=== PATIENT | female | born 1990 | race Caucasian/White ===

== ENCOUNTER 2021-02-20 16:35 | Emergency (ER) | payer OTHER ==
[~2021-02-20 16:35] MED LIST: COLACE 100MG C100 MG PO; FLEXERIL 10 MG10 MG PO; IBUPROFEN800 MG PO; NORCO 5-325 TA1 EACH PO; OMNICEF 300 MG300 MG PO; ZOFRAN ODT 4 MG4 MG PO
[2021-02-20 18:21] LABS: HEMOGLOBIN 14.4 gm/dl (12.3-15.3); RED BLOOD COUNT 4.8 M/UL (4.00-5.10); WHITE BLOOD COUNT 8.9 K/UL (4.5-11.0)
[2021-02-20 18:46] LABS: BUN/CREATININE RATIO 10 (0-10)
[2021-02-20] MEDS ORDERED: CEFDINIR300 MG PO (22:27)
== END 2021-02-20 22:46 | disposition home or self-care (01) ==
LOC: ER1 16:35
PROVIDERS: Physician Assistant Medical
DX: N12 Tubulo-interstitial nephritis, not specified as acute or chronic (principal); F17.210 Nicotine dependence, cigarettes, uncomplicated; Z20.822 Contact with and (suspected) exposure to COVID-19
CPT/HCPCS: 71045; 80053; 81001; 84703; 85025; 85379; 85610; 85730; 86140; 87077; 87086; 87186; 93005; 96374; 96375; 99284; J0696; J1885; J7030; Q9967; U0002

== ENCOUNTER → 2021-05-12 | Outpatient (CLI) | payer OTHER ==
[~2021-05-12] MED LIST changes: +CEFDINIR300 MG PO; +HYDROCODON-ACE1 EAC2 PO; +MELATONIN10 M2 PO; +NAPROSYN500 MG PO; +ZOFRAN 4 MG TAB4 MG PO; +[UNRECOGNIZED DRUG - OTHER] PO
[2021-05-12 13:58] LABS: HEMOGLOBIN 13.7 gm/dl (12.3-15.3); RED BLOOD COUNT 4.6 M/UL (4.00-5.10); WHITE BLOOD COUNT 4.8 K/UL (4.5-11.0)
== END ==
LOC: OPSV2 10:00
PROVIDERS: Obstetrics & Gynecology
DX: Z01.812 Encounter for preprocedural laboratory examination (principal); R10.2 Pelvic and perineal pain
CPT/HCPCS: 81001; 85025

== ENCOUNTER → 2021-05-14 | Day surgery (SDC) | payer OTHER ==
[~2021-05-14] VITALS: Ht 177.8 cm; Wt 91.6 kg
== END | disposition home or self-care (01) ==
LOC: OR 07:27
DX: N83.8 Other noninflammatory disorders of ovary, fallopian tube and broad ligament (principal); N92.0 Excessive and frequent menstruation with regular cycle; N94.10 Unspecified dyspareunia; N73.6 Female pelvic peritoneal adhesions (postinfective); Z97.5 Presence of (intrauterine) contraceptive device
CPT/HCPCS: 84703; J1100; J1170; J2001; J2250; J2405; J2704; J2710; J2795; J3010; J7120